=== PATIENT | male | born 1960 | race Caucasian/White ===

== ENCOUNTER → 2024-05-16 16:00 | Outpatient (REF) | payer BC, SELFPAY | LOC: RAD 16:00 | PROVIDERS: ATTENDING PHYSICIAN Family Medicine | DX: M54.16 Radiculopathy, lumbar region (principal); M79.645 Pain in left finger(s) | CPT/HCPCS: 72100; 73130 ==

== ENCOUNTER → 2024-06-18 10:05 | Outpatient (REF) | payer BC, SELFPAY | LOC: RAD 10:05 | PROVIDERS: ATTENDING PHYSICIAN Family Medicine | DX: M54.2 Cervicalgia (principal) | CPT/HCPCS: 72050 ==